=== PATIENT | female | born 1990 | race Hispanic/Latino ===

== ENCOUNTER 2019-03-07 13:08 | Emergency (ER) | payer OTHER ==
[2019-03-07] MEDS ORDERED: NA CHLORIDE 0.9% 1,000 ML ONE (15:05)
[2019-03-07] MEDS ORDERED: MORPHINE 4 MG/ML SYR ONE (15:05)
[2019-03-07] MEDS ORDERED: ONDANSETRON 4 MG/2 ML VIAL ONE (15:05)
[2019-03-07 15:17] LABS: Absolute Lymphocytes (CBC) 3.8 K/uL (0.7-4.9); Basophils % 1.4 % (0-1.3); Hematocrit 48.2 % (36.0-45.0); Lymphocytes % 40.8 % (15.3-44.8); MPV 7.3 fL (7.6-11.3); RBC Red Blood Cell Count 5.12 M/uL (3.86-4.86)
[2019-03-07 16:24] LABS: Albumin 4.1 g/dL (3.4-5.0); Bilirubin Direct 0.1 mg/dL (0-0.2); Bilirubin Total 0.4 mg/dL (0.2-1.0); Potassium 3.8 mmol/L (3.5-5.1); Protein, Total 7.9 g/dL (6.4-8.2)
--- NOTE | 2019-03-07 17:04 | RAD REPORT ---
EXAM DESCRIPTION: CT - Abdomen Pelvis W Contrast - 03/07/2019 4:40 pm CLINICAL HISTORY: Abdominal pain COMPARISON: none. TECHNIQUE: Computed axial tomography of the abdomen pelvis was obtained. 100 cc Isovue-300 was admin istered intravenously. Oral contrast was not requested which limits evaluation of bowel. All CT scans are performed using dose optimization technique as appropriate and may include automated exposure control or mA/KV adjustment according to patient size. FINDINGS: Small bilateral renal calculi. No hydronephrosis. The liver, spleen, pancreas, and adrenals appear unremarkable. There is no evidence of diverticulitis. Normal appendix IUD in place IMPRESSION: Small bilateral nonobstructing renal calculi.
--- NOTE | 2019-03-07 17:14 | EDPHYS ---
Physician [facility] Name: Susannah Arias Age: 29 yrs Sex: Female : 1990 Arrival Date: 03/07/2019 Time: 13:[address] Private MD: ED Physician Michael Hamilton HPI: 03/07 17:04 This 29 yrs old Female presents to ER via Ambulatory with complaints of pm1 Abdominal Pain, Nausea/Vomiting/Diarrhea. 17:04 The patient presents with abdominal pain in the epigastric area. Onset: The pm1 symptoms/episode began/occurred 3 day(s) ago. The symptoms do not radiate. Associated signs and symptoms: Pertinent positives: nausea, vomiting, and diarrhea, Pertinent negatives: blood in stools, chest pain, dysuria, fever, shortness of breath, vomiting blood. The symptoms are described as crampy. Modifying factors: The symptoms are alleviated by nothing, the symptoms are aggravated by food. Severity of pain: in the emergency department the pain is actually worse. The patient has not experienced similar symptoms in the past. The patient has not recently seen a physician. 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 - Social history:: Smoking status: Patient uses tobacco products, smokes one-half pack cigarettes per day. ROS: 17:04 Constitutional: Negative for fever, chills, and weight loss, Eyes: Negative for injury, pm1 pain, redness, and discharge, ENT: Negative for injury, pain, and discharge, Neck: Negative for injury, pain, and swelling, Cardiovascular: Negative for chest pain, palpitations, and edema, Respiratory: Negative for shortness of breath, cough, wheezing, and pleuritic chest pain. 17:04 Back: Negative for injury and pain, : Negative for injury, bleeding, discharge, and swelling, MS/Extremity: Negative for injury and deformity, Skin: Negative for injury, rash, and discoloration, Neuro: Negative for headache, weakness, numbness, tingling, and seizure. 17:04 Abdomen/GI: Positive for abdominal pain, nausea, vomiting, and diarrhea, Negative for constipation. Exam: 17:04 Constitutional: This is a well developed, well nourished patient who is awake, alert, pm1 and in no acute distress. Head/Face: Normocephalic, atraumatic. Neck: Trachea midline, no thyromegaly or masses palpated, and no cervical lymphadenopathy. Supple, full range of motion without nuchal rigidity, or vertebral point tenderness. No Meningismus. Chest/axilla: Normal chest wall appearance and motion. Nontender with no deformity. No lesions are appreciated. Cardiovascular: Regular rate and rhythm with a normal S1 and S2. No gallops, murmurs, or rubs. Normal PMI, no JVD. No pulse deficits. Respiratory: Lungs have equal breath sounds bilaterally, clear to auscultation and percussion. No rales, rhonchi or wheezes noted. No increased work of breathing, no retractions or nasal flaring. 17:04 Back: No spinal tenderness. No costovertebral tenderness. Full range of motion. Skin: Warm, dry with normal turgor. Normal color with no rashes, no lesions, and no evidence of cellulitis. MS/ Extremity: Pulses equal, no cyanosis. Neurovascular intact. Full, normal range of motion. 17:04 Abdomen/GI: Inspection: abdomen appears normal, Bowel sounds: normal, Palpation: abdomen is soft and non-tender, mass, is not appreciated, rebound tenderness, is not appreciated. 17:04 Neuro: Orientation: is normal, Motor: is normal, moves all fours, Sensation: is normal, no obvious gross deficits. Vital Signs: 13:25 BP 134 / 84; Pulse 97; Resp 16; Temp 98.4; Pulse Ox 100% on R/A; Weight 72.57 kg; la1 Height 5 ft. 5 in. (165.10 cm); 15:41 BP 118 / 71; Pulse 60; Resp 18; Pulse Ox 100% on R/A; mg2 17:39 BP 120 / 78; Pulse 65; Resp 18; Temp 98; Pulse Ox 100% on R/A; mg2 13:25 Body Mass Index 26.63 (72.57 kg, 165.10 cm) la1 MDM: 14:52 Patient medically screened. pm1 17:09 Data reviewed: vital signs. Data interpreted: Pulse oximetry: on room air is 100 %. pm1 Interpretation: normal. 17:11 Counseling: I had a detailed discussion with the patient and/or guardian regarding: the pm1 historical points, exam findings, and any diagnostic results supporting the discharge/admit diagnosis, lab results, radiology results, the need for outpatient follow up, to return to the emergency department if symptoms worsen or persist or if there are any questions or concerns that arise at home. 03/07 14:51 Order name: Basic Metabolic Panel; Complete Time: 16:55 mg2 03/07 14:51 Order name: CBC with Diff; Complete Time: 16:55 mg2 03/07 14:51 Order name: Creatinine for Radiology; Complete Time: 16:55 mg2 03/07 14:51 Order name: Hepatic Function; Complete Time: 16:55 mg2 03/07 14:51 Order name: Lipase; Complete Time: 16:55 mg2 03/07 15:15 Order name: Urine Dipstick--Ancillary (enter results) eb 03/07 14:51 Order name: IV Saline Lock; Complete Time: 15:11 mg2 03/07 14:56 Order name: CT Abd/Pelvis - IV Contrast Only; Complete Time: 17:10 pm1 03/07 15:15 Order name: Urine --Ancillary (enter results) eb 03/07 14:51 Order name: Labs collected and sent; Complete Time: 15:11 mg2 03/07 15:25 Order name: Labs - recollect needed: green top recollet; Complete Time: 15:53 eb Administered Medications: 15:10 Drug: NS 0.9% 1000 ml Route: IV; Rate: 1000 ml; Site: left forearm; mg2 15:11 Drug: Zofran 4 mg Route: IVP; Site: left forearm; mg2 15:54 Follow up: Response: No adverse reaction mg2 15:11 Drug: morphine 4 mg Route: IVP; Site: left forearm; mg2 15:53 Follow up: Response: No adverse reaction; Marked relief of symptoms mg2 17:38 Drug: morphine 2 mg Route: IVP; Site: left forearm; mg2 17:39 Follow up: Response: No adverse reaction; Medication administered at discharge. mg2 17:38 Drug: Bentyl 20 mg Route: PO; mg2 17:39 Follow up: Response: No adverse reaction; Medication administered at discharge. mg2 Disposition: 18:43 Co-signature as Attending Physician, Michael Hamilton MD. rn Disposition: 03/07/19 17:12 Discharged to Home. Impression: Unspecified abdominal pain, Vomiting, Diarrhea, unspecified. - Condition is Stable. - Discharge Instructions: Abdominal Pain, Adult, Food Choices to Help Relieve Diarrhea, Adult, Diarrhea, Adult, Nausea and Vomiting, Adult, Viral Gastroenteritis, Adult. - Prescriptions for Bentyl 20 mg Oral Tablet - take 1 tablet by ORAL route every 6 hours As needed; 20 tablet. Zofran 4 mg Oral Tablet - take 1 tablet by ORAL route every 12 hours As needed; 20 tablet. - Medication Reconciliation Form, Thank You Letter, Antibiotic Education, Prescription Opioid Use, Work release form form. - Follow up: Emergency Department; When: As needed; Reason: Worsening of condition. Follow up: Private Physician; When: 2 - 3 days; Reason: Recheck today's complaints, Continuance of care, Re-evaluation by your physician. - Problem is new. - Symptoms have improved. Signatures: Dispatcher [employer] EDMS Michael Hamilton MD MD rn Attema, Lee, RN RN la1 Jefry Land NP AIRPORT DRIVER pm1 Nae Sharp Michele, RN RN mg2 Corrections: (The following items were deleted from the chart) 17:40 17:12 03/07/2019 17:12 Discharged to Home. Impression: Unspecified abdominal pain; mg2 Vomiting; Diarrhea, unspecified. Condition is Stable. Forms are Medication Reconciliation Form, Thank You Letter, Antibiotic Education, Prescription Opioid Use. Follow up: Emergency Department; When: As needed; Reason: Worsening of condition. Follow up: Private Physician; When: 2 - 3 days; Reason: Recheck today's complaints, Continuance of care, Re-evaluation by your physician. Problem is new. Symptoms have improved. pm1
--- NOTE | 2019-03-07 17:14 | ER ---
Nurse's Notes [facility] Name: Susannah Arias Age: 29 yrs Sex: Female : 1990 Arrival Date: 03/07/2019 Time: 13:[address] Private MD: Diagnosis: Unspecified abdominal pain;Vomiting;Diarrhea, unspecified Presentation: 03/07 13:24 Presenting complaint: Patient states: N/V/D and abd pain for the last couple days. la1 Transition of care: patient was not received from another setting of care. Onset of symptoms was March 07, 2019. Risk Assessment: Do you want to hurt yourself or someone else? Patient reports no desire to harm self or others. Initial Sepsis Screen: Does the patient meet any 2 criteria? No. Patient's initial sepsis screen is negative. Does the patient have a suspected source of infection? No. Patient's initial sepsis screen is negative. Care prior to arrival: None. 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 - Social history:: Smoking status: Patient uses tobacco products, smokes one-half pack cigarettes per day. Screenin:12 Abuse screen: Denies threats or abuse. Denies injuries from another. Nutritional mg2 screening: No deficits noted. Tuberculosis screening: No symptoms or risk factors identified. Fall Risk IV access (20 points). Assessment: 15:30 General: Appears in no apparent distress. comfortable, Behavior is calm, cooperative. mg2 15:30 Pain: Complains of pain in abdomen Pain does not radiate. Pain currently is 6 out of 10 mg2 on a pain scale. Quality of pain is described as aching, Pain began gradually. Neuro: Level of Consciousness is awake, alert, obeys commands, Oriented to person, place, time, situation. Cardiovascular: Capillary refill < 3 seconds Patient's skin is warm and dry. Respiratory: Airway is patent Respiratory effort is even, unlabored, Respiratory pattern is regular, symmetrical. GI: Bowel sounds present X 4 quads. Abd is soft and non tender. : No signs and/or symptoms were reported regarding the genitourinary system. EENT: No signs and/or symptoms were reported regarding the EENT system. Derm: Skin is intact, is healthy with good turgor, Skin is pink, warm \T\ dry. normal. Musculoskeletal: Circulation, motion, and sensation intact. Capillary refill < 3 seconds. Vital Signs: 13:25 BP 134 / 84; Pulse 97; Resp 16; Temp 98.4; Pulse Ox 100% on R/A; Weight 72.57 kg; la1 Height 5 ft. 5 in. (165.10 cm); 15:41 BP 118 / 71; Pulse 60; Resp 18; Pulse Ox 100% on R/A; mg2 17:39 BP 120 / 78; Pulse 65; Resp 18; Temp 98; Pulse Ox 100% on R/A; mg2 13:25 Body Mass Index 26.63 (72.57 kg, 165.10 cm) la1 ED Course: 13:24 Patient arrived in ED. la1 13:25 Triage completed. la1 13:25 Arm band placed on left wrist. la1 14:51 Elian Candelaria, FLOWER is Primary Nurse. mg2 14:51 Jefry Land NP is PHCP. pm1 14:51 Michael Hamilton MD is Attending Physician. pm1 14:58 Radiology exam delayed due to lab results not completed at this time. (BUN/Creatinine) vm2 test not completed at this time. 15:12 No provider procedures requiring assistance completed. Inserted saline lock: 20 gauge mg2 in left forearm, using aseptic technique. Blood collected. 15:15 Radiology exam delayed due to lab results not completed at this time. test vm2 not completed at this time. 15:40 Patient has correct armband on for positive identification. Pulse ox on. NIBP on. Door mg2 closed. Warm blanket given. 15:52 Radiology exam delayed due to lab results not completed at this time. (BUN/Creatinine). vm2 16:01 Radiology exam delayed due to lab results not completed at this time. (BUN/Creatinine). nj 16:[address] via wheelchair. nj 16:44 CT Abd/Pelvis - IV Contrast Only In Process Unspecified. EDMS 17:39 IV discontinued, intact, bleeding controlled, No redness/swelling at site. Pressure mg2 dressing applied. Administered Medications: 15:10 Drug: NS 0.9% 1000 ml Route: IV; Rate: 1000 ml; Site: left forearm; mg2 15:11 Drug: Zofran 4 mg Route: IVP; Site: left forearm; mg2 15:54 Follow up: Response: No adverse reaction mg2 15:11 Drug: morphine 4 mg Route: IVP; Site: left forearm; mg2 15:53 Follow up: Response: No adverse reaction; Marked relief of symptoms mg2 17:38 Drug: morphine 2 mg Route: IVP; Site: left forearm; mg2 17:39 Follow up: Response: No adverse reaction; Medication administered at discharge. mg2 17:38 Drug: Bentyl 20 mg Route: PO; mg2 17:39 Follow up: Response: No adverse reaction; Medication administered at discharge. mg2 Outcome: 17:12 Discharge ordered by MD. pm1 17:40 Discharged to home ambulatory. mg2 17:40 Condition: stable 17:40 Discharge instructions given to patient, Instructed on discharge instructions, follow up and referral plans. medication usage, Demonstrated understanding of instructions, follow-up care, medications, Prescriptions given X 2. 17:40 Patient left the ED. mg2 Signatures: Dispatcher [employer] EDMS Mogran Kenyon RN RN la1 Jefry Land NP BED BUG EXTERMINATOR pm1 Nelson Freed Victoria vm2 Elian Candelaria RN RN mg2 Corrections: (The following items were deleted from the chart) 15:52 15:52 Radiology exam delayed due to lab results not completed at this time. vm2 test not completed at this time. vm2
[2019-03-07] MEDS ORDERED: MORPHINE 2 MG/ML SYR ONE (17:20)
[2019-03-07] MEDS ORDERED: DICYCLOMINE HCL 10 MG CAP ONE (17:21)
[2019-03-07 18:13] LABS: Urine Blood 1+ (NEG); Urine Glucose NEGATIVE (NEG); Urine Protein NEGATIVE (NEG); Urine pH 5.5 (5.0-7.0)
[2019-03-07 19:03] VITALS: O2SAT 100
[2019-03-07 19:06] VITALS: BP 120/78; TEMP 98
== END 2019-03-07 17:40 | disposition home or self-care (01) ==
LOC: ER 13:08
DX: R11.10 Vomiting, unspecified (principal); R19.7 Diarrhea, unspecified; F17.210 Nicotine dependence, cigarettes, uncomplicated
CPT/HCPCS: 85025; 80048; 36415; 81025; 80076; 81003; 83690; 74177; 96375; 96374; 99284; Q9967; J2270; J7030; J2405

== ENCOUNTER → 2023-04-14 | Emergency (ER) | payer OTHER ==
[~2023-04-14] MED LIST: FENTANYL CITR 100 MCG/2 ML ONE; KETOROLAC 30 MG/ML INJ ONE
[2023-04-14 08:28] LABS: SARS-CoV-2 Antigen Rapid Res Negative (Negative)
[2023-04-14 08:31] LABS: Absolute Lymphocytes (CBC) 3.3 K/uL (0.7-4.9); Hematocrit 44.2 % (36.0-45.0); Lymphocytes % 32.7 % (15.3-44.8); MCV 89.1 fL (80-100); Platelets 300 thou/uL (152-406); RBC Red Blood Cell Count 4.96 M/uL (3.86-4.86)
[2023-04-14 08:37] LABS: Specific Gravity 1.026 (1.005-1.030)
[2023-04-14 09:08] LABS: Albumin 3.7 g/dL (3.4-5.0); Bilirubin Total 0.3 mg/dL (0.2-1.0); Potassium 3.8 mEq/L (3.5-5.1); Protein, Total 7.5 g/dL (6.4-8.2)
--- NOTE | 2023-04-14 09:13 | RAD REPORT ---
EXAM DESCRIPTION: CT - Soft Tissue Neck W/Contr CLINICAL HISTORY: PAIN COMPARISON: No comparisons TECHNIQUE All CT scans are performed using dose optimization technique as appropriate and may includ e automated exposure control or mA/KV adjustment according to patient size. FINDINGS: Nasopharyngeal tissues are normal in appearance. Fossa Rosenmller are normal. Parapharyngeal fat triangles are symmetric. Tongue base structures are normal. Mild asymmetric aeration of the piriform sinuses. Normal thyroid gland. The vocal cords are normal in appearance. Salivary glands are normal in appearance. Upper lung gaytan are clear. Included intracranial contents are unremarkable. No suspicious bony abnormality. IMPRESSION: No acute abnormality detected.
--- NOTE | 2023-04-14 09:17 | EDPHYS ---
Physician Documentation [facility] Name: Susannah Arias Age: 33 yrs Sex: Female : 1990 Arrival Date: 04/14/2023 Time: 07:36 Bed 6 Private MD: ED Physician Jori Stein HPI: 04/14 07:58 This 33 yrs old Female presents to ER via Ambulatory with complaints of Stiff ec2 Neck, Shoulder Pain. 07:58 Patient arrives today for evaluation of anterior neck pain. Patient reports that she ec2 has been expensing pain since the course of the night. States that she felt a pop in her neck on the anterior portion of the neck and subsequently started having discomfort. Patient reports some recent URI symptoms. No vomiting, no diarrhea, no fevers.. Historical: - Allergies: 07:52 tramadol; ko1 - Immunization history:: Adult Immunizations unknown. - Social history:: Smoking status: Patient denies any tobacco usage or history of. ROS: 07:58 Constitutional: as per hpi ec2 Exam: 07:58 Constitutional: GEN: NAD Head: atraumatic Eyes: EOMI Ears: External ears are normal. ec2 Neck: Anterior cervical lymphadenopathy noted, no C-spine TTP. CV: regular rate LUNGS: no respiratory distress ABD: non-distended SKIN: no evidence of rashes MSK: no evidence of trauma NEURO: moves all extremities equally Vital Signs: 07:54 BP 137 / 93; Pulse 78; Resp 18; Temp 98.8; Pulse Ox 98% ; Weight 92.53 kg; Height 5 ft. ko1 3 in. ; 08:30 BP 135 / 89; Pulse 77; Resp 15; Pulse Ox 97% on R/A; hb 09:28 BP 128 / 82; Pulse 72; Resp 15; Pulse Ox 99% ; ko1 07:54 Body Mass Index 36.14 (92.53 kg, 160.02 cm) ko1 MDM: 07:45 Patient medically screened. ec2 07:58 Data reviewed: vital signs. ED course: Patient arrives today for evaluation of anterior ec2 neck pain. Examination remarkable for nontoxic individual is otherwise in no acute distress complaining of neck pain. Examination does show anterior cervical lymphadenopathy. Will obtain lab work, CT imaging and reassess the patient. Currently considering processes such as deep space infection, strep pharyngitis, viral pharyngitis.. 08:51 ED course: CBC is unremarkable. negative. Negative COVID and negative flu ec2 swabs, negative strep swab. Pending CT imaging and metabolic profile. . 09:15 ED course: Metabolic profile is reassuring. CT imaging of the neck shows no acute neck ec2 pathology. Suspect muscular strain causing her symptoms. Will discharge home, return precautions given. . 04/14 07:57 Order name: CBC with Diff; Complete Time: 08:51 ec2 04/14 07:57 Order name: CMP; Complete Time: 09:15 ec2 04/14 07:57 Order name: Test, Urine; Complete Time: 08:51 ec2 04/14 07:57 Order name: Strep ec2 04/14 07:57 Order name: SARS RAPID; Complete Time: 08:51 ec2 04/14 07:57 Order name: Influenza Screen (a \T\ B); Complete Time: 08:51 ec2 04/14 08:32 Order name: Throat Culture EDMS 04/14 07:57 Order name: CT Soft Tissue Neck W/contr; Complete Time: 09:15 ec2 04/14 08:43 Order name: Labs - recollect needed: recollect green top/ hemolyzed; Complete Time: eb 08:47 Administered Medications: 08:29 Drug: Ketorolac IVP 15 mg IVP once Route: IVP; Site: right antecubital; hb 09:29 Follow up: Response: No adverse reaction ko1 08:30 Drug: fentaNYL (PF) IVP 50 mcg IVP once Route: IVP; Site: right antecubital; hb 09:29 Follow up: Response: No adverse reaction; Pain is decreased ko1 Disposition Summary: 04/14/23 09:17 Discharge Ordered Notes: Location: Home ec2 Condition: Stable ec2 Diagnosis - Strain of muscle, fascia and tendon at neck level ec2 Followup: ec2 - With: Private Physician - When: - Reason: Recheck today's complaints Discharge Instructions: - Discharge Summary Sheet ec2 Forms: - Medication Reconciliation Form ec2 - Thank You Letter ec2 - Antibiotic Education ec2 - Prescription Opioid Use ec2 - Patient Portal Instructions ec2 - Leadership Thank You Letter ec2 Prescriptions: - methocarbamol 500 mg Oral tablet - take 2 tablets ORAL route 4 times per day; 20 tablet; Refills: 0, Product ec2 Selection Permitted Signatures: Dispatcher [employer] Mary Gonzales RN RN hb Botello, Elizabeth eb Oliver, Kathy, RN RN ko1 Jori Stein MD MD ec2
--- NOTE | 2023-04-14 09:17 | ER ---
Nurse's Notes [facility] Name: Susannah Arias Age: 33 yrs Sex: Female : 1990 Arrival Date: 04/14/2023 Time: 07:36 Bed 6 Private MD: Diagnosis: Strain of muscle, fascia and tendon at neck level Presentation: 04/14 07:50 Chief complaint: Patient states: felt pop in face/neck while taking a shower, now it ko1 hurts under left jaw and left shoulder, hurts to move head up and down. Neck has been hurting for a couple of days, keeps getting sick. Coronavirus screen: At this time, the client does not indicate any symptoms associated with coronavirus-19. Ebola Screen: No symptoms or risks identified at this time. Initial Sepsis Screen: Does the patient meet any 2 criteria? No. Patient's initial sepsis screen is negative. Does the patient have a suspected source of infection? No. Patient's initial sepsis screen is negative. Risk Assessment: Do you want to hurt yourself or someone else? Patient reports no desire to harm self or others. Onset of symptoms was April 14, 2023. 07:50 Method Of Arrival: Ambulatory ko1 07:50 Acuity: GREGG 4 ko1 08:42 Acuity: GREGG 3 iw Triage Assessment: 07:52 General: Appears in no apparent distress. uncomfortable, Behavior is cooperative, ko1 appropriate for age, anxious. Pain: Complains of pain in left trapezius, left face, left neck. Historical: - Allergies: 07:52 tramadol; ko1 - Immunization history:: Adult Immunizations unknown. - Social history:: Smoking status: Patient denies any tobacco usage or history of. Screenin:30 [facility] ED Fall Risk Assessment (Adult) Score/Fall Risk Level 0 - 2 = Low Risk hb Oriented to surroundings, Maintained a safe environment, Educated pt \T\ family on fall prevention, incl call for assistance when getting out of bed. Abuse screen: Denies threats or abuse. Denies injuries from another. Nutritional screening: No deficits noted. Tuberculosis screening: No symptoms or risk factors identified. Assessment: 08:31 Neuro: No deficits noted. Cardiovascular: No deficits noted. Respiratory: Reports cough ko1 that is non-productive. GI: No deficits noted. : No deficits noted. EENT: Reports nasal congestion pain in left jaw. Derm: No deficits noted. Musculoskeletal: No deficits noted. 09:18 Reassessment: Patient appears in no apparent distress at this time. Patient and/or hb family updated on plan of care and expected duration. Pain level reassessed. Patient is alert, oriented x 3, equal unlabored respirations, skin warm/dry/pink. Vital Signs: 07:54 BP 137 / 93; Pulse 78; Resp 18; Temp 98.8; Pulse Ox 98% ; Weight 92.53 kg; Height 5 ft. ko1 3 in. ; 08:30 BP 135 / 89; Pulse 77; Resp 15; Pulse Ox 97% on R/A; hb 09:28 BP 128 / 82; Pulse 72; Resp 15; Pulse Ox 99% ; ko1 07:54 Body Mass Index 36.14 (92.53 kg, 160.02 cm) ko1 ED Course: 07:40 Patient arrived in ED. ts1 07:41 Jori Stein MD is Attending Physician. ec2 07:45 Rosio Douglas, FLOWER is Primary Nurse. ko1 07:52 Triage completed. ko1 07:52 Arm band placed on right wrist. Patient placed in an exam room, on a stretcher, on ko1 pulse oximetry, Patient notified of wait time. 08:08 Inserted saline lock: 20 gauge in right antecubital area, using aseptic technique. ko1 Blood collected. 08:09 Influenza Screen (a \T\ B) Sent. ko1 08:09 SARS RAPID Sent. ko1 08:09 Strep Sent. ko1 08:19 CMP Sent. ko1 08:19 CBC with Diff Sent. ko1 08:31 Patient has correct armband on for positive identification. Placed in gown. Bed in low ko1 position. Call light in reach. Side rails up X2. Pulse ox on. NIBP on. Door closed. Noise minimized. Lights dimmed. Warm blanket given. 08:31 No provider procedures requiring assistance completed. ko1 08:52 Throat Culture Sent. ko1 08:57 CT Soft Tissue Neck W/contr In Process Unspecified. EDMS 09:28 Provided Education on: na. ko1 09:28 IV discontinued, intact, bleeding controlled, No redness/swelling at site. Pressure ko1 dressing applied. Administered Medications: 08:29 Drug: Ketorolac IVP 15 mg IVP once Route: IVP; Site: right antecubital; hb 09:29 Follow up: Response: No adverse reaction ko1 08:30 Drug: fentaNYL (PF) IVP 50 mcg IVP once Route: IVP; Site: right antecubital; hb 09:29 Follow up: Response: No adverse reaction; Pain is decreased ko1 Medication: 08:31 VIS not applicable for this client. ko1 Outcome: :17 Discharge ordered by . ec2 :28 Discharged to home ambulatory, ko1 :28 Condition: stable :28 Discharge instructions given to patient, Instructed on discharge instructions, follow up and referral plans. medication usage, Demonstrated understanding of instructions, follow-up care, medications, Prescriptions given X :29 Patient left the ED. ko1 Signatures: Dispatcher [employer] Emani Cox RN RN Mary Dorantes RN RN hb Oliver, Kathy, RN RN ko1 Nahomy Gupta PAS PAS ts1 Jori Stein MD MD ec2
[2023-04-14 11:42] VITALS: TEMP 98.8
[2023-04-14 11:50] VITALS: BP 128/82; O2SAT 99
== END ==
LOC: ER 07:36
DX: S16.1XXA Strain of muscle, fascia and tendon at neck level, initial encounter (principal); Z88.5 Allergy status to narcotic agent; Z11.52 Encounter for screening for COVID-19
CPT/HCPCS: 87070; 85025; 36415; 81025; 87081; 80053; 87804 ×2; 70491; 96375; 96374; 99284; 87811; Q9967; J3010